=== PATIENT | male | born 1965 | race Native Hawaiian/Other Pacific Islander ===

== ENCOUNTER 2023-12-14 08:32 | Emergency (ER) | payer OTHER ==
[~2023-12-14] VITALS: Ht 177.8 cm; Wt 111.1 kg
[2023-12-14 09:10] LABS: PLATELET COUNT 154 K/uL (142-355)
[2023-12-14 09:24] LABS: PARTIAL THROMBOPLASTIN TIME 25.1 SECONDS (23.9-36.7)
== END 2023-12-14 10:25 | disposition home or self-care (01) ==
LOC: ED 08:32
PROVIDERS: Family Medicine
DX: R03.0 Elevated blood-pressure reading, without diagnosis of hypertension (principal); R53.83 Other fatigue; R07.89 Other chest pain
CPT/HCPCS: 36415; 80053; 81002; 82550; 84484; 85027; 85379; 85610; 85730; 87635; 93005; 99284; U0003